=== PATIENT | female | born 2000 | race Hispanic/Latino ===

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

== ENCOUNTER 2021-05-23 08:04 | Day surgery (SDC) | payer BC ==
[2021-05-23] MEDS ORDERED: Ringers Lactate 1,000 ML IV ONE (08:20)
[2021-05-23 08:25] LABS: Absolute Lymphocytes (CBC) 2.5 K/uL (0.7-4.9); Hematocrit 35.9 % (36.0-45.0); Lymphocytes % 39.5 % (15.3-44.8); MPV 8.4 fL (7.6-11.3); RBC Red Blood Cell Count 4.21 M/uL (3.86-4.86)
[2021-05-23] MEDS ORDERED: LIDOCAINE 2% MPF 5 ML VIAL ONE (09:28)
[2021-05-23] MEDS ORDERED: KETOROLAC 30 MG/ML INJ ONE (09:28)
[2021-05-23] MEDS ORDERED: FENTANYL CITR 100 MCG/2 ML ONE (09:28)
[2021-05-23] MEDS ORDERED: propofoL 200 MG/20 ML VIAL IV ONE (09:28)
[2021-05-23] MEDS ORDERED: MIDAZOLAM HCL 2 MG/2 ML INJ ONE (09:28)
[2021-05-23] MEDS ORDERED: dexAMETHasone 10 MG/ML VIAL ONE ×2 (09:28→10:27)
[2021-05-23] MEDS ORDERED: ONDANSETRON 4 MG/2 ML VIAL ONE (09:28)
[2021-05-23] MEDS ORDERED: BUPIVACAINE 0.5% PF 10 ML VIAL ONE ×2 (09:59→10:28)
[2021-05-23] MEDS ORDERED: CEFAZOLIN/NS 1gm 1 GM/50 ML BAG ONE (10:17)
[2021-05-23] MEDS ORDERED: BUPIVACAINE 0.25% PF 10 ML VIAL ONE (10:27)
[2021-05-23 11:27] LABS: BUN Blood Urea Nitrogen 8 mg/dL (7-18); Bicarbonate 26 mmol/L (21-32); Glucose Level 90 mg/dL (74-106); Potassium 4.6 mmol/L (3.5-5.1); Sodium Level 139 mmol/L (136-145)
[2021-05-23] MEDS ORDERED: MEPERIDINE HCL 25 MG/ML SYR ONE (11:38)
--- NOTE | 2021-05-23 11:50 | P.BOP ---
Preoperative diagnosis: TraumatPunture wound left hand with cellultis/abscess/retained foreign body Postoperative diagnosis: same 1.5 x 1.5 x 2 cm Primary procedure: Left hand wound exploration with removal Foreign body and abscess drainage Estimated blood loss: <5cc Specimen: organic FB, culture Findings: organic wood material Anesthesia: General Complications: None Transferred to: Recovery Room Condition: Good
[2021-05-23] MEDS ORDERED: CODEINE 30MG/APAP 300MG TAB ONE (12:37)
--- NOTE | 2021-05-23 12:43 | OP ---
Date of Procedure: 05/23/2021 Surgeon: Dex Chairez MD Preoperative Diagnosis: Traumatic puncture wound of the left hand with cellulitis, abscess, and wilton ined foreign body. Postoperative Diagnosis: Traumatic puncture wound of the left hand with cellulitis, abscess, and ret ained foreign body. The area is about 1.5 x 1.5 x 2 cm. Procedure: Left hand wound exploration with removal of foreign body and abscess drainage. Estimated Blood Loss: Less than 5 cc. Specimen: Organic foreign body. It looked like a piece of a wood splinter consistent with the histo ry that she gave us. Anesthesia: General plus local. Indication: This is the case of a lady, who just going downstairs using the rails and she got a e piece of wood stuck on her hand. She was able to remove what she believed was all of it, but in e last 3 days, she developed purulent discharge, swelling over the area, came to my office few hours ago, and I advised the importance of wound exploration, removing the pus and since this is trauma, po ssible removal of foreign body with benefits, alternatives, and risks including, but not limited to i nfection, bleeding, damage to adjacent structures, anesthesia complication, NE, and even . She also understands she may require wound care. She understands to use the antibiotics, keep compliance with it. The area was marked by me and the patient. Procedure In Detail: The patient was brought to the operating room, placed in supine position. Anes thesia was done without complication. The left hand was prepped and draped in usual sterile fashion. Local anesthesia was applied followed by a sharp incision of the skin. This allowed us to go into the wound, follow the tract and then at the end, we have an organic material in the form of splinter, lodged deep in that area. We proceeded to identify carefully preserving the structures around the a chelsy, removed it, irrigated the area profusely. We could not see any other foreign body. At that mom ent, I proceeded then to irrigate the area injecting local anesthetic. Before that, we already have cultured the region. Once again, no other foreign body found. So, we packed the area with iodoform quarter of an inch and covered with sterile dressings. The patient tolerated the procedure well. Sp onge count and instrument counts correct. The patient was sent to recovery in stable condition. ANGELO/HUI Voice ID: [id number] Report ID: [id number]
--- NOTE | 2021-05-23 12:49 | DS ---
Diagnosis: Traumatic puncture wound of left hand with cellulitis, abscess, and retained foreign body . Procedure: Wound exploration with removal of foreign body and drainage of an abscess. Disposition: Home. Activity: As tolerated. No heavy lifting. Plan: Follow up in my office tomorrow. We are going to help her doing dressing changes. We explain ed to the patient's mother how to do dressing changes. She is not comfortable yet, so tomorrow hopef ully when she see us, she can help us with wound care. She is already on antibiotics and pain medica tions. ANGELO/HUI Voice ID: [id number] Report ID: [id number]
[2021-05-23 14:44] VITALS: BP 154/93; TEMP 97.4; O2SAT 99
== END 2021-05-23 12:50 | disposition home or self-care (01) ==
LOC: OR 08:04
PROVIDERS: ATTEND Surgery
PROC: 0JCK0ZZ Extirpation of Matter from Left Hand Subcutaneous Tissue and Fascia, Open Approach (ICD-10-PCS; principal; 2021-05-23 10:45)
DX: S61.442A Puncture wound with foreign body of left hand, initial encounter (principal); L03.114 Cellulitis of left upper limb; L02.512 Cutaneous abscess of left hand
CPT/HCPCS: 87070; 85025; 80048; 36415; 87205 ×2; 84703; 88300; 87075; 10120; J2704; J2250; J3010; J1100; J2175; J0690; J7120; J2405